=== PATIENT | female | born 1945 | race Caucasian/White ===

== ENCOUNTER → 2016-10-07 | Outpatient (CLI) | payer OTHER ==
[~2016-10-07] VITALS: Ht 157.5 cm; Wt 41.5 kg
[~2016-10-07] MED LIST: ALEVE220 M1 PO; CALCIUM 600 +1 EAC1 PO; CLIMARA 0.00.0375 MG; DOLOPHINE HCL10 MG PO; ESTRACE PO; GLUCOSAMINE CH1 EAC7 PO; METHADONE HCL 110 M1 PO; PERCOCET 10-321 EACH; PERCOCET 10-321 EACH PO; PREMPHASE 0.621 EAC1 PO; TOPAMAX PO; TOPROL XL50 MG PO
--- NOTE | ~2016-10-07 | HPC ---
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 The patient is seen today in followup for her medication. As is reflected in the record, she is a clinic patient for nearly 14 years. She has been on an opioid agreement under terms of a contract signed on 05/22/2005. We carefully monitor medication over that. We have had one recent red flag still in prescription from her daughter. We have reviewed her medications carefully, urine drug screens have been performed showing no illicit medications and also demonstrating the medications that she receives in her prescriptions. 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 I have been seeing her at regular intervals to make sure that her medication at least is received in a timely fashion, have encouraged her always to take it precisely as prescribed. Today, she reports that her pain is an 8/10. She is better with standing, worse with sitting. Continues to sit on a foam cushion, which has ever present during her visits. PHYSICAL EXAMINATION: BMI is 16.7, up a bit from her last visit. VITAL SIGNS: Blood pressure 156/69 and respirations 62. Localized discomfort in an area of her pudendal nerve on the right. IMPRESSION: 1. Pudendal neuralgia. 2. Management of high risk medication. RECOMMENDATIONS: Today, I reviewed important issues related to the use of opioids and other potent, centrally-acting medications for the treatment of pain. Rationale for the use of medication is to reduce pain and improve daily activities and function. These activities, individualized for each patient, include simple activities of daily living, improvement in work capabilities, increased involvement in family and other social activities. Improvement in psychosocial elements of chronic pain were discussed in a broader conversation of wellness that included nonpharmacologic measures to manage pain, suffering and efforts to enhance well being. Remaining as physically active as possible [facility] [address] [place] [address] PAIN MANAGEMENT CONSULTATION Name: DENISSE VELASCO Room #: REG [facility].#: [id number] Admission: 10/07/16 Attend Phys: Luis Braun MD Discharge: Date of : 43 Report #: [id number] for age and ability plays a tremendous role in the management of chronic pain. This was encouraged. We reviewed potential medication side effects, toxicities and drug interactions, employing strategies to manage problems identified. Pain medications have potential side effects, and patients should exercise caution when operating machinery or driving. We discussed in detail the dramatic increase in the Emergency Room visits, hospitalizations and deaths related to misuse and diversion of prescription pain medications in [place]. This opioid crisis in [place] requires both physicians and patients alike to safely use all medications. Safeguarding of medications by keeping them safely locked up or out of reach of others is a critical patient responsibility to ensure that medications are not diverted to others. We discussed the Center for Disease Control (CDC) guidelines for safe use of opioids and the efforts to standardize opioid prescribing to prevent complications. These include guidelines which we strive to meet. They include the standardization of various opioids to morphine milligram equivalents (MME) and also stress the use of the lowest effective dose. Efforts to remain within daily maximum dosing guidelines will also be of focus of treatment. Addiction versus therapeutic use of medication includes routine followup, single prescriber, single pharmacy and the use of random drug screens and other tools to ensure safe prescribing. A signed agreement outlying these issues has been reviewed and remains on the patient chart. Prescriptions were provided today under terms of that agreement, and followup for her is planned in 3 months. MEDICATIONS: Methadone 10 mg b.i.d. and oxycodone 10/325 one tablet 4 times daily for breakthrough. <ELECTRONICALLY SIGNED> By: Luis Braun MD 10/19/16 [id number] Luis Braun MD /nt
[2016-10-07 10:35] VITALS: BP 156/69
== END | disposition home or self-care (01) ==
LOC: PAIN 07:02
DX: G58.8 Other specified mononeuropathies (principal); G89.29 Other chronic pain; R10.2 Pelvic and perineal pain

== ENCOUNTER → 2017-01-01 | Outpatient (CLI) | payer OTHER ==
[~2017-01-01] VITALS: Ht 154.9 cm; Wt 40.9 kg
--- NOTE | ~2017-01-01 | HPC ---
[facility] [place] [address] PAIN MANAGEMENT CONSULTATION Name: DENISSE VELASCO Room #: REG [facility] Ponce#: [id number] Admission: 01/01/17 Attend Phys: Ap Ramirez MD Discharge: Date of : 43 Report #: [id number] THIS REPORT FOR: //name// CC: Mike Ramirez DATE OF SERVICE: 01/01/2017 FOLLOWUP COMPLAINT: Here for medication renewal. FOLLOWUP HISTORY: The patient is a 71-year-old female, who has been followed in the pain clinic for intractable perineal pain with pudendal neuralgia. She feels that her medications are helpful. She rates her pain as a 6/10. She continues to have perineal and lower right buttocks pain with pain down to the right hip. She has had surgery. She continues to have burning, pulling, constant discomfort lying down. Pain is exacerbated by sitting, bending and similar activities. She notes that the pain is helped by sitting on a foam cushion or standing. She feels that her medications continue to be helpful and would like to have them renewed. She is not having any untoward reactions from the medications. PHYSICAL EXAMINATION: Blood pressure is 166/83, pulse 68, respiratory rate 14, and room air saturation 100%. Height 5 feet 1 inch and weight 90 pounds. BMI is 17. She rates her pain today as 6/10. IMPRESSION: 1. Pudendal neuralgia. 2. Management of high risk medications. RECOMMENDATIONS: 1. We discussed treatment options with the patient. We will continue with her current medical regimen of opioids. She feels that her medications are helpful. They are not causing any undo side effects. She would like to continue with the use of methadone and oxycodone. 2. A script for one-month supply of methadone 10 mg 1 p.o. b.i.d. and Percocet 120 tablets 10/325 to be taken q. 6 hours p.r.n. pain. The patient will call if she has any problems with her medications. We would like to thank you for letting us participate in her care. We hope she continues to improve. By: [id number] Ap Ramirez MD /bindu
[2017-01-01 09:41] VITALS: BP 166/83
== END ==
LOC: PAIN 08:13
DX: Z76.0 Encounter for issue of repeat prescription (principal); M79.2 Neuralgia and neuritis, unspecified

== ENCOUNTER → 2017-01-27 | Outpatient (CLI) | payer OTHER ==
[~2017-01-27] VITALS: Ht 154.9 cm; Wt 40.9 kg
--- NOTE | ~2017-01-27 | HPC ---
[facility] [place] [address] [address] [place] [address] PAIN MANAGEMENT CONSULTATION Name: DENISSE VELASCO Room #: REG [facility] Kilpatrick.#: [id number] Admission: 01/27/17 Attend Phys: Luis Braun MD Discharge: Date of : 43 Report #: [id number] THIS REPORT FOR: //name// CC: Mike Braun DATE OF SERVICE: 01/27/2017 DATE OF REGISTRATION: 01/27/2017. REASON FOR VISIT: Followup visit for pudendal neuralgia and management of high-risk medications, methadone and oxycodone. SUBJECTIVE: The patient remains on medication for her intractable pain. Review back to the record shows that she was on methadone as early as 2004. She has been on an opioid agreement signed at that time, so it has been now 12 years. She continues to report that this provides adequate relief for her pudendal neuralgia. She has not sought out other treatments. She has not been hospitalized for this condition. She has scheduled surgery for her right hammertoe on 02/06/2017. She had questions today about managing her medication around the time of surgery. She is going to have this surgery with Dr. Mark. I have given her some instructions on how to manage her medication between now and then and also during surgery described below. The patient has had no falls and is not at fall risk. She does not smoke. She denies use of alcohol. She continues to be limited in her sitting due to pain directly overlying the pudendal nerve. PHYSICAL EXAMINATION: VITAL SIGNS: She is with a blood pressure of 169/101, repeat 177/88. She is to follow with Dr. Currie for elevated blood pressure. Heart rate 71. BMI is 17.1. NEUROMUSCULAR: She is able to sit but not for long because of increased pain. She stands throughout her visit today. Tenderness is located over the right buttock and the ischial region. She has good range of motion of the hip. IMPRESSION: 1. Pudendal neuralgia, chronic. 2. Management of high-risk medications under terms of an opioid agreement. PLAN: I have renewed her medications today, which are methadone 10 mg q.12 hours and Percocet 10/325 one tablet q.4-6 hours as needed, she receives 120 tablets per month. I have asked her for the next 2 weeks prior to her surgery, [address] [address] PAIN MANAGEMENT CONSULTATION Name: DENISSE VELASCO Room #: REG CLI Rosario#: [id number] Admission: 01/27/17 Attend Phys: Luis Braun MD Discharge: Date of : 43 Report #: [id number] to break her medication and even go to 3 tablets a day if she can. This will help provide some decrease in the tolerance even for the short-term use and will allow her to get better relief after surgery with a full pill as she is taking now. If this is not successful, she can take an additional pill out of her current allotment to help her with the postoperative pain. If she is still having trouble, I want her to call the clinic. Followup visit otherwise would be in 3 months. By: [id number] Luis Braun MD /nt
[2017-01-27 10:37] VITALS: BP 169/101
[2017-01-27 10:51] VITALS: BP 177/88
== END ==
LOC: PAIN 06:32
DX: G89.29 Other chronic pain (principal)

== ENCOUNTER → 2017-04-30 | Outpatient (CLI) | payer OTHER ==
[~2017-04-30] VITALS: Ht 165.1 cm; Wt 39.5 kg
[~2017-04-30] MED LIST changes: +ESTRADIOL 1 MG T1 M1 PO
--- NOTE | ~2017-04-30 | HPC ---
[facility] [address] [place] [address] PAIN MANAGEMENT CONSULTATION Name: DENISSE VELASCO Room #: REG PREMA EveTrenton.#: [id number] Admission: 04/30/17 Attend Phys: Luis Braun MD Discharge: Date of : 43 Report #: [id number] THIS REPORT FOR: //name// CC: Mike Braun DATE OF SERVICE: 04/30/2017 Followup visit for chronic peroneal neuropathy. The patient returns to pain clinic for renewal of her medication. She is stable. She has had no changes in her condition since her last visit here. She has avoided the hospital. She has had some surgery on bunion which was complicated, but she has recovered. Medications provide improvement in her pain and function. She is able to get around the house to take care of herself. She drives a car. She has no significant side effects at this time. PHYSICAL EXAMINATION: GENERAL: She is a very frail, continues to lose a bit of weight. Pain score is 7/10. She is bright and alert, pleasant and shows no signs of depression or anxiety. VITAL SIGNS: Blood pressure is 142/59, heart rate 71, respirations 14. Pain score today is 7. She has peroneal tenderness in the distribution of the pudendal nerve. IMPRESSION: 1. Pudendal neuralgia. 2. High risk medications management. PLAN: I renewed her methadone for today under terms of our opioid agreement. A followup visit is scheduled for her in 3 months. <ELECTRONICALLY SIGNED> By: Luis Braun MD 05/01/17 [id number] [id number] Luis Braun MD /nt
[2017-04-30 12:44] VITALS: BP 142/59
== END ==
LOC: PAIN 07:20
DX: G58.8 Other specified mononeuropathies (principal)